=== PATIENT | female | born 1970 | race Caucasian/White ===

== ENCOUNTER 2016-12-12 11:20 | Inpatient (IN) | payer OTHER ==
[2016-12-12 12:19] VITALS: BMI 29.8
--- NOTE | 2016-12-12 13:48 | HP ---
Admission ROS [facility] Chief Complaint: requesting inpatient rehab from crack cocaine and cannabis Allergies/Adverse Reactions: Allergies Allergy/AdvReac Type Severity Reaction Status Date / Time No Known Allergies Allergy Verified 12/12/16 13:50 History of Present Illness: 46 yo f wih PMHx schizoaffective DO. DM, HLD, HTN on multiple medicatons with which she is complaint,no h/o suicide attempts in the past, no suicidal ideation at present [facility], cannabis and alcohol. no h/o seizures, dts, o IRAJ when she does nto drink, does not drink everyday, smoke marijuana and crack cocaine daily, last used 2 days ago Exam Limitations: No Limitations - Ebola screening Have you traveled outside of the country in the last 21 days: No Have you had contact with anyone from an Ebola affected area: No Have you been sick,other than usual withdrawal symptoms: No Do you have a fever: No - Review of Systems Constitutional: No Symptoms Reported EENT: reports: No Symptoms Reported Respiratory: reports: No Symptoms reported Cardiac: reports: No Symptoms Reported GI: reports: No Symptoms Reported : reports: No Symptoms Reported Musculoskeletal: reports: Joint Pain, Joint Swelling (work up showed fluid on elbow. responds to ibuprofen) Integumentary: reports: No Symptoms Reported Neuro: reports: No Symptoms reported Endocrine: reports: No Symptoms Reported Hematology: reports: No Symptoms Reported Psychiatric: reports: Judgement Intact, Mood/Affect Appropiate, Orientated x3, Agitated, Anxious, Depressed Other Systems: Reviewed and Negative Patient History - Patient Medical History Hx Anemia: No Hx Asthma: No Hx Chronic Obstructive Pulmonary Disease (COPD): No Hx Cancer: No Hx Cardiac Disorders: No Hx Congestive Heart Failure: No Hx Hypertension: Yes Hx Hypercholesterolemia: Yes Hx Pacemaker: No HX Cerebrovascular Accident: No Hx Seizures: No Hx Dementia: No Hx Diabetes: Yes Hx Gastrointestinal Disorders: No Hx Liver Disease: No Hx Genitourinary Disorders: No Hx Sexually Transmitted Disorders: No Hx Renal Disease (ESRD): No Hx Thyroid Disease: No Hx Human Immunodeficiency Virus (HIV): No Hx Hepatitis C: No Hx Depression: No Hx Suicide Attempt: No Hx Bipolar Disorder: No Hx Schizophrenia: No Other Medical History: schizoaffective do - Patient Surgical History Past Surgical History: No Hx Neurologic Surgery: No Hx Cataract Extraction: No Hx Cardiac Surgery: No Hx Lung Surgery: No Hx Breast Surgery: No Hx Breast Biopsy: No Hx Abdominal Surgery: No Hx Appendectomy: No Hx Cholecystectomy: No Hx Genitourinary Surgery: No Hx Section: No Hx Orthopedic Surgery: No Hx Hysterectomy: No Anesthesia Reaction: No - PPD History Previous Implant?: Yes Documented Results: Positive w/o proof Implanted On Prior [facility] Admission?: No PPD to be Administered?: No - Reproductive History Patient is a Female of Child Bearing Age (11 -55 yrs old): Yes Last Menstrual Period: 10/11/16 LMP comment: was absent x1 year prior Patient : No - Smoking Cessation Smoking history: Current every day smoker Have you smoked in the past 12 months: Yes Aproximately how many cigarettes per day: 6 Hx Chewing Tobacco Use: No Initiated information on smoking cessation: Yes 'Breaking Loose' booklet given: 12/12/16 - Substance & Tx. History Hx Alcohol Use: Yes (occasional use, no IRAJ) Hx Substance Use: Yes (daily cannabis and cocaine) Substance Use Type: Alcohol, Cocaine, Marijuana Hx Substance Use Treatment: Yes ([facility] inpatient 05/2016) - Substances Abused Crack Route: Smoking Frequency: Daily Amount used: as much money as she has Age of first use: 16 Date of Last Use: 12/10/16 Marijuana/Hashish Route: Smoking Frequency: Daily Amount used: $20/daily Age of first use: 13 Date of Last Use: 12/10/16 Alcohol Route: Oral Frequency: 1-2 times per week Amount used: beer, depending on how much money she has Age of first use: 14 Date of Last Use: 12/10/16 Family Disease History - Family Disease History Family Disease History: Diabetes: Mother, Other: Father (alzheimers, alcholism) Admission Physical Exam S - Vital Signs Vital Signs: Vital Signs - 24 hr 12/12/16 12:17 Temperature 97.9 F Pulse Rate 79 Respiratory 18 Rate Blood Pressure 135/87 - Physical General Appearance: Yes: Nourished, Appropriately Dressed, Mild Distress, Anxious, Other (overseight) HEENTM: Yes: Within Normal Limits, EOMI, Hearing grossly Normal, Normal ENT Inspection, Normocephalic, Normal Voice, AMANDA, Pharynx Normal Respiratory: Yes: Within Normal Limits, Chest Non-Tender, Lungs Clear, Normal Breath Sounds, No Respiratory Distress, No Accessory Muscle Use Neck: Yes: Within Normal Limits, No masses,lesions,Nodules, Supple, Trachea in good position Breast: Yes: Breast Exam Deferred Cardiology: Yes: Within Normal Limits, Regular Rhythm, Regular Rate, S1, S2 Abdominal: Yes: Normal Bowel Sounds, Non Tender, Soft, Protuberent Genitourinary: Yes: Within Normal Limits Back: Yes: Within Normal Limits, Normal Inspection Musculoskeletal: Yes: full range of Motion, Joint swelling (l elbow), Other ( bruised left elbow, pain on motion, normal ROM, no pint or bony tenderness) Extremities: Yes: Normal Capillary Refill, Normal Inspection, Normal Range of Motion, Non-Tender, Swelling (l elbow as above) Neurological: Yes: rotary adjuster II-XII NML intact, Fully Oriented, Alert, Motor Strength 5/5, Normal Response, Depressed Affect Integumentary: Yes: Within Normal Limits, Normal Color, Dry, Warm, Other (dry skin on feet) Lymphatic: Yes: Within Normal Limits - Diagnostic (1) Cocaine dependence Current Visit: Yes Status: Chronic Qualifiers: Substance use status: uncomplicated Qualified Code(s): F14.20 - Cocaine dependence, uncomplicated (2) Cannabis dependence Current Visit: Yes Status: Chronic (3) Alcohol abuse Current Visit: Yes Status: Chronic (4) Nicotine dependence Current Visit: Yes Status: Chronic Qualifiers: Nicotine product type: cigarettes Substance use status: uncomplicated Qualified Code(s): F17.210 - Nicotine dependence, cigarettes, uncomplicated (5) Schizoaffective disorder Current Visit: Yes Status: Chronic (6) Anxiety Current Visit: Yes Status: Chronic (7) Left elbow pain Current Visit: Yes Status: Acute (8) HTN (hypertension) Current Visit: Yes Status: Chronic Qualifiers: Hypertension type: essential hypertension Qualified Code(s): I10 - Essential (primary) hypertension (9) Diabetes mellitus Current Visit: Yes Status: Chronic Qualifiers: Diabetes mellitus type: type 2 Diabetes mellitus complication status: without complication Diabetes mellitus buttermaker helper insulin use: unspecified buttermaker helper insulin use status Qualified Code(s): E11.9 - Type 2 diabetes mellitus without complications (10) Hyperlipidemia Current Visit: Yes Status: Chronic Qualifiers: Hyperlipidemia type: unspecified Qualified Code(s): E78.5 - Hyperlipidemia, unspecified (11) Dry skin Current Visit: Yes Status: Chronic Cleared for Admission S - Detox or Rehab Claeared for Rehab Admission: Yes [facility] Breath Alcohol Content Breath Alcohol Content: 0 Urine Pregancy Test - Result Urine Test Results: Negative- NO Line Present Urine Drug Screen - Control Is Test Valid: Yes - Results Drug Screen Negative: No Urine Drug Screen Results: THC-Marijuana
[2016-12-12] MEDS ORDERED: MAGNESIUM HYDROX 2400MG/30ML ORAL SUSPENSION 30 ML CUP PO PRN (13:50)
[2016-12-12] MEDS ORDERED: guaiFENesin/D-METHORPHAN HB 10 ML UNIT-DOSE CUPS PO PRN (13:50)
[2016-12-12] MEDS ORDERED: LOPERAMIDE HCL 2 MG CAPSULE PO PRN (13:50)
[2016-12-12] MEDS ORDERED: P-EPHED 60MG/TRIPROLIDI 2.5MG TABLET PO PRN (13:50)
[2016-12-12] MEDS ORDERED: ACETAMINOPHEN 325 MG TABLET (FP) PO PRN (13:50)
[2016-12-12] MEDS ORDERED: MENTHOL/PHENOL 1 EACH UD MM PRN (13:50)
[2016-12-12] MEDS ORDERED: MAGNESIUM CITRATE 300 ML BOTTLE PO PRN (13:50)
[2016-12-12] MEDS ORDERED: NICOTINE 14 MG/24 HOURS TOPICAL PATCH TD PRN (13:53)
[2016-12-12] MEDS ORDERED: metFORMIN HCL 500 MG TABLET (FP) PO SCH (16:30)
[2016-12-12 17:03] LABS: MCH 28.1 pg (25.7-33.7); MCHC 32.6 g/dl (32.0-36.0); MEAN CELL VOLUME 86.2 fl (80-96); PLATELET COUNT 348 K/MM3 (134-434); RDW 14.1 % (11.6-15.6); WHITE BLOOD COUNT 10.2 K/mm3 (4.0-10.0)
[2016-12-12 17:16] LABS: ALBUMIN 3.3 g/dl (3.4-5.0); ALK PHOS 58 U/L (45-117); ANION GAP 12 (8-16); BILIRUBIN,TOTAL 0.2 mg/dL (0.2-1.0); CALCIUM 8.7 mg/dL (8.5-10.1); CO2 28 mmol/L (21-32); CREATININE 0.6 mg/dL (0.55-1.02); GLUCOSE,RANDOM 147 mg/dL (74-106); SGOT/AST 11 U/L (15-37); SGPT/ALT 17 U/L (12-78); TOT PROT 6.5 g/dl (6.4-8.2)
--- NOTE | 2016-12-12 18:59 | PN ---
S Progress Note Note: RECEIVED NURSE CALL PATIENT REPORTS THAT SHE IS TAKING LANTUS AT NIGHT BEGIN INSULIN SLIDING SCALE CONTINUE DETOX
[2016-12-12] MEDS: metFORMIN HCL 500 MG TABLET (FP) PO SCH (19:12)
[2016-12-12] MEDS: NICOTINE POLACRILEX 2 MG GUM BUC PRN (19:13)
[2016-12-12] MEDS ORDERED: traZODone HCL 150 MG TABLET PO SCH (22:00)
[2016-12-12] MEDS ORDERED: diphenhydrAMINE HCL 50 MG CAPSULE PO PRN (22:00)
[2016-12-12] MEDS: THIAMINE HCL 100 MG TABLET (FP) PO SCH (22:04)
[2016-12-12] MEDS: ATORVASTATIN CA 40 MG TABLET (FP) PO SCH (22:04)
[2016-12-12] MEDS: DIVALPROEX SODIUM 500 MG TABLET E.C. PO SCH (22:04)
[2016-12-12] MEDS: traZODone HCL 50 MG TABLET (FP) PO SCH (22:04)
[2016-12-12] MEDS: INSULIN SLIDING SCALE (NOVOLOG) 1 VIAL SQ SCH (22:21)
[2016-12-12] MEDS: PERPHENAZINE 8 MG TABLET PO SCH (22:24)
[2016-12-12 22:54] LABS: URINE APPEARANCE CLEAR; URINE BILIRUBIN NEGATIVE (NEGATIVE); URINE BLOOD NEGATIVE (NEGATIVE); URINE COLOR STRAW; URINE GLUCOSE (UA) NEGATIVE (NEGATIVE); URINE KETONE NEGATIVE (NEGATIVE); URINE NITRITE NEGATIVE (NEGATIVE); URINE PROTEIN NEGATIVE (NEGATIVE); URINE UROBILINOGEN NEGATIVE E.U./dl (0.2-1.0)
[2016-12-12 22:58] LABS: URINE LEUK ESTERASE 2+ (NEGATIVE)
[2016-12-12 23:01] LABS: URINE BACTERIA RARE /hpf (NONE SEEN); URINE RBC 1 /hpf (0-3); URINE WBC 20 /hpf (3-5)
[2016-12-13] MEDS: metFORMIN HCL 500 MG TABLET (FP) PO SCH ×2 (06:54→17:13)
[2016-12-13] MEDS: INSULIN SLIDING SCALE (NOVOLOG) 1 VIAL SQ SCH ×4 (06:55→21:55)
[2016-12-13] MEDS: FLUoxetine HCL 10 MG CAPSULE (FP) PO SCH (10:34)
[2016-12-13] MEDS: ASPIRIN COATED 81 MG TABLET.EC PO SCH (10:34)
[2016-12-13] MEDS: PRENATAL VITAMINS W/ FOLIC ACID TABLET (FP) PO SCH (10:34)
[2016-12-13] MEDS: NICOTINE POLACRILEX 2 MG GUM BUC PRN ×2 (10:36→17:15)
[2016-12-13] MEDS: ENALAPRIL MALEATE 2.5 MG TABLET (FP) PO SCH (11:54)
[2016-12-13] MEDS ORDERED: INFLUENZA VACCINE 45 MCG/0.5 ML (MDV 16-17) IM ONE (12:00)
[2016-12-13] MEDS ORDERED: PNEUMOC 13-VAL CONJ-DIP CRM/PF 0.5 ML DISP.SYRIN IM ONE (12:00)
[2016-12-13 14:32] LABS: HIV 1 & 2 AB NEGATIVE; HIV 1 AGp24 NEGATIVE
[2016-12-13] MEDS ORDERED: INSULIN (NOVOLOG) ASPART 100 UNITS/ML 10ML VIAL ONE (16:52)
--- NOTE | 2016-12-13 18:29 | EKG ---
Test Reason : Blood Pressure : / mmHG Vent. Rate : 072 BPM Atrial Rate : 072 BPM P-R Int : 166 ms QRS Dur : 088 ms QT Int : 406 ms P-R-T Axes : 015 054 034 degrees QTc Int : 444 ms NORMAL SINUS RHYTHM CANNOT RULE OUT ANTERIOR INFARCT , AGE UNDETERMINED ABNORMAL ECG NO PREVIOUS ECGS AVAILABLE Confirmed by CLARE MAURICIO MD ([id number]) on 12/13/2016 6:29:03 PM Referred By: Daniel Ni Confirmed By:CLARE MAURICIO MD
[2016-12-13] MEDS: traZODone HCL 50 MG TABLET (FP) PO SCH (21:53)
[2016-12-13] MEDS: THIAMINE HCL 100 MG TABLET (FP) PO SCH (21:53)
[2016-12-13] MEDS: DIVALPROEX SODIUM 500 MG TABLET E.C. PO SCH (21:53)
[2016-12-13] MEDS: ATORVASTATIN CA 40 MG TABLET (FP) PO SCH (21:53)
[2016-12-13] MEDS: PERPHENAZINE 8 MG TABLET PO SCH (21:56)
[2016-12-14] MEDS: metFORMIN HCL 500 MG TABLET (FP) PO SCH ×2 (06:51→17:25)
[2016-12-14] MEDS: NICOTINE POLACRILEX 2 MG GUM BUC PRN ×2 (06:51→11:54)
[2016-12-14] MEDS: INSULIN SLIDING SCALE (NOVOLOG) 1 VIAL SQ SCH ×4 (07:04→21:43)
[2016-12-14] MEDS: PRENATAL VITAMINS W/ FOLIC ACID TABLET (FP) PO SCH (10:18)
[2016-12-14] MEDS: AMMONIUM LACTATE 12% LOTION 225 GM BOTTLE TP PRN (10:18)
[2016-12-14] MEDS: FLUoxetine HCL 10 MG CAPSULE (FP) PO SCH (10:18)
[2016-12-14] MEDS: ASPIRIN COATED 81 MG TABLET.EC PO SCH (10:18)
[2016-12-14] MEDS: ENALAPRIL MALEATE 2.5 MG TABLET (FP) PO SCH (10:19)
[2016-12-14] MEDS ORDERED: INSULIN (NOVOLOG) ASPART 100 UNITS/ML 10ML VIAL ONE ×2 (16:51→23:24)
[2016-12-14] MEDS ORDERED: ATORVASTATIN CA 20 MG TABLET (FP) ONE (19:20)
[2016-12-14] MEDS ORDERED: PT OWN MED DRAWER 7, Y5N ONE (19:21)
[2016-12-14] MEDS: traZODone HCL 50 MG TABLET (FP) PO SCH (21:39)
[2016-12-14] MEDS: THIAMINE HCL 100 MG TABLET (FP) PO SCH (21:39)
[2016-12-14] MEDS: DIVALPROEX SODIUM 500 MG TABLET E.C. PO SCH (21:39)
[2016-12-14] MEDS: ATORVASTATIN CA 40 MG TABLET (FP) PO SCH (21:42)
[2016-12-14] MEDS: PERPHENAZINE 8 MG TABLET PO SCH (21:43)
[2016-12-15] MEDS: metFORMIN HCL 500 MG TABLET (FP) PO SCH ×2 (06:37→17:26)
[2016-12-15] MEDS: INSULIN SLIDING SCALE (NOVOLOG) 1 VIAL SQ SCH ×4 (06:37→21:44)
[2016-12-15] MEDS: NICOTINE POLACRILEX 2 MG GUM BUC PRN ×3 (06:38→17:27)
[2016-12-15] MEDS: ASPIRIN COATED 81 MG TABLET.EC PO SCH (10:35)
[2016-12-15] MEDS: PRENATAL VITAMINS W/ FOLIC ACID TABLET (FP) PO SCH (10:36)
[2016-12-15] MEDS: ENALAPRIL MALEATE 2.5 MG TABLET (FP) PO SCH (10:36)
[2016-12-15] MEDS: FLUoxetine HCL 10 MG CAPSULE (FP) PO SCH (10:36)
[2016-12-15] MEDS: IBUPROFEN 400 MG TABLET (FP) PO PRN (11:27)
--- NOTE | 2016-12-15 13:31 | HP ---
Psychiatrist Admission - Data Date of interview: 12/15/16 Admission source: [facility] Identifying data: Sabino is the first admission to [address] [place] [address] for this46 single H childless female,residing Supportive Housing , on SSI. Medical History: HTN,DM,Hyperlipidemia. Psychiatric History: First contact with psychiatrist was in her when she was admitted to [facility] due to first psychotic episode with auditory hallucinations,paranoid ideas.She was dx with Schizoaffective disorder,placed on Prozac,Perphenazine,Depakote.Patient reports 5 more psychiatric admissions.She is under care of psychiatrist at [facility].Medications:Trilafon 8 mg po hs,Depakote 500 mg po hs ,Prozac 30 mg po daily and Trazodone 150 mg po hs. Physical/Sexual Abuse/Trauma History: denies Vital Signs: Vital Signs - 24 hr 12/14/16 12/15/16 12/15/16 14:00 00:30 03:30 Temperature Pulse Rate 87 Respiratory 20 18 18 Rate Blood Pressure 126/80 12/15/16 12/15/16 12/15/16 07:13 09:55 12:11 Temperature 97.2 F L 98.1 F 98.1 F Pulse Rate 75 94 H 94 H Respiratory 18 18 18 Rate Blood Pressure 100/68 117/71 117/71 Allergies/Adverse Reactions: Allergies Allergy/AdvReac Type Severity Reaction Status Date / Time No Known Allergies Allergy Verified 12/12/16 13:50 Date of last physical exam: 12/12/16 Concur with the findings of this exam: Yes - Substance Abuse/Tx History Hx Alcohol Use: Yes (reports drinking since 13 yo) Hx Substance Use: Yes (since 17 yo,crack/cocaine since 17 yo) Substance Use Type: Alcohol, Cocaine, Marijuana Hx Substance Use Treatment: Yes (completed 28 extermination supervisor in May 2016) - Admission Criteria Previous failed treatment: Yes Poor recovery environment: Yes Comorbidities: Yes Lacks judgement: Yes Mental Status Exam - Mental Status Exam Alert and Oriented to: Time, Place, Person Cognitive Function: Grossly Intact Patient Appearance: Unkempt Mood: Depressed Affect: Mood Congruent, Labile Patient Behavior: Cooperative Speech Pattern: Clear Voice Loudness: Normal Thought Process: Goal Oriented Thought Disorder: Being Controlled Hallucinations: Denies Suicidal Ideation: Denies Homicidal Ideation: Denies Insight/Judgement: Fair Sleep: Fair Appetite: Fair Muscle strength/Tone: Normal Gait/Station: Normal Psychiatric Findings - Problem List ([place] 1, 2,3) (1) Alcohol abuse Current Visit: Yes (2) Cannabis dependence Current Visit: Yes Status: Chronic (3) Cocaine dependence Current Visit: Yes Status: Chronic Qualifiers: Substance use status: uncomplicated Qualified Code(s): F14.20 - Cocaine dependence, uncomplicated (4) Diabetes mellitus Current Visit: Yes Status: Chronic Qualifiers: Diabetes mellitus type: type 2 Diabetes mellitus complication status: without complication Diabetes mellitus extermination supervisor insulin use: unspecified residential insulin use status Qualified Code(s): E11.9 - Type 2 diabetes mellitus without complications (5) HTN (hypertension) Current Visit: Yes Status: Chronic Qualifiers: Hypertension type: essential hypertension Qualified Code(s): I10 - Essential (primary) hypertension (6) Schizoaffective disorder, depressive type Current Visit: Yes Status: Chronic - Initial Treatment Plan Initial Treatment Plan: Continue current medications as per plan. will monitor progress.
[2016-12-15] MEDS ORDERED: INSULIN (NOVOLOG) ASPART 100 UNITS/ML 10ML VIAL ONE (16:18)
[2016-12-15] MEDS ORDERED: PT OWN MED DRAWER 7, Y5N ONE (19:49)
[2016-12-15] MEDS: PERPHENAZINE 4 MG TABLET PO SCH (21:42)
[2016-12-15] MEDS: ATORVASTATIN CA 40 MG TABLET (FP) PO SCH (21:42)
[2016-12-15] MEDS: traZODone HCL 50 MG TABLET (FP) PO SCH (21:42)
[2016-12-15] MEDS: DIVALPROEX SODIUM 500 MG TABLET E.C. PO SCH (21:42)
[2016-12-15] MEDS: THIAMINE HCL 100 MG TABLET (FP) PO SCH (21:42)
[2016-12-16] MEDS: metFORMIN HCL 500 MG TABLET (FP) PO SCH ×2 (06:19→16:56)
[2016-12-16] MEDS: INSULIN SLIDING SCALE (NOVOLOG) 1 VIAL SQ SCH ×3 (06:20→16:57)
[2016-12-16] MEDS: NICOTINE POLACRILEX 2 MG GUM BUC PRN ×4 (06:20→16:56)
[2016-12-16] MEDS ORDERED: PT OWN MED DRAWER 7, Y5N ONE (08:56)
[2016-12-16] MEDS: PRENATAL VITAMINS W/ FOLIC ACID TABLET (FP) PO SCH (10:18)
[2016-12-16] MEDS: FLUoxetine HCL 10 MG CAPSULE (FP) PO SCH (10:18)
[2016-12-16] MEDS: ASPIRIN COATED 81 MG TABLET.EC PO SCH (10:18)
[2016-12-16] MEDS: ENALAPRIL MALEATE 2.5 MG TABLET (FP) PO SCH (10:18)
[2016-12-16] MEDS: MAG HYDROX/AL HYDROX/SIMETH 30 ML UNIT-DOSE CUP PO PRN (12:16)
[2016-12-16] MEDS: IBUPROFEN 400 MG TABLET (FP) PO PRN (14:35)
--- NOTE | 2016-12-16 20:00 | PN ---
[facility] Progress Note Note: STABLE BGM CHANGE INSULIN SLIDING SCALE FROM QID TO BID
[2016-12-16] MEDS: ATORVASTATIN CA 40 MG TABLET (FP) PO SCH (21:46)
[2016-12-16] MEDS: traZODone HCL 50 MG TABLET (FP) PO SCH (21:46)
[2016-12-16] MEDS: THIAMINE HCL 100 MG TABLET (FP) PO SCH (21:46)
[2016-12-16] MEDS: DIVALPROEX SODIUM 500 MG TABLET E.C. PO SCH (21:46)
[2016-12-16] MEDS: PERPHENAZINE 4 MG TABLET PO SCH (21:47)
[2016-12-17] MEDS: NICOTINE POLACRILEX 2 MG GUM BUC PRN ×4 (06:53→21:48)
[2016-12-17] MEDS: INSULIN SLIDING SCALE (NOVOLOG) 1 VIAL SQ SCH ×2 (06:53→16:25)
[2016-12-17] MEDS: metFORMIN HCL 500 MG TABLET (FP) PO SCH ×2 (06:53→16:23)
[2016-12-17] MEDS: PRENATAL VITAMINS W/ FOLIC ACID TABLET (FP) PO SCH (10:55)
[2016-12-17] MEDS: FLUoxetine HCL 10 MG CAPSULE (FP) PO SCH (10:55)
[2016-12-17] MEDS: ASPIRIN COATED 81 MG TABLET.EC PO SCH (10:55)
[2016-12-17] MEDS: ENALAPRIL MALEATE 2.5 MG TABLET (FP) PO SCH (10:57)
[2016-12-17] MEDS: MAG HYDROX/AL HYDROX/SIMETH 30 ML UNIT-DOSE CUP PO PRN (13:54)
[2016-12-17] MEDS ORDERED: INSULIN (NOVOLOG) ASPART 100 UNITS/ML 10ML VIAL ONE ×2 (16:20→23:24)
[2016-12-17] MEDS: DIVALPROEX SODIUM 500 MG TABLET E.C. PO SCH (21:46)
[2016-12-17] MEDS: THIAMINE HCL 100 MG TABLET (FP) PO SCH (21:46)
[2016-12-17] MEDS: traZODone HCL 50 MG TABLET (FP) PO SCH (21:46)
[2016-12-17] MEDS: ATORVASTATIN CA 40 MG TABLET (FP) PO SCH (21:46)
[2016-12-17] MEDS: PERPHENAZINE 4 MG TABLET PO SCH (21:47)
[2016-12-18] MEDS: metFORMIN HCL 500 MG TABLET (FP) PO SCH ×2 (06:50→16:55)
[2016-12-18] MEDS: INSULIN SLIDING SCALE (NOVOLOG) 1 VIAL SQ SCH ×2 (06:51→16:56)
[2016-12-18] MEDS: NICOTINE POLACRILEX 2 MG GUM BUC PRN ×3 (06:51→16:57)
[2016-12-18] MEDS: ASPIRIN COATED 81 MG TABLET.EC PO SCH (10:25)
[2016-12-18] MEDS: ENALAPRIL MALEATE 2.5 MG TABLET (FP) PO SCH (10:25)
[2016-12-18] MEDS: PRENATAL VITAMINS W/ FOLIC ACID TABLET (FP) PO SCH (10:25)
[2016-12-18] MEDS: FLUoxetine HCL 10 MG CAPSULE (FP) PO SCH (10:25)
[2016-12-18] MEDS: MAG HYDROX/AL HYDROX/SIMETH 30 ML UNIT-DOSE CUP PO PRN ×2 (13:09→21:54)
[2016-12-18] MEDS: traZODone HCL 50 MG TABLET (FP) PO SCH (21:51)
[2016-12-18] MEDS: DIVALPROEX SODIUM 500 MG TABLET E.C. PO SCH (21:51)
[2016-12-18] MEDS: THIAMINE HCL 100 MG TABLET (FP) PO SCH (21:53)
[2016-12-18] MEDS: ATORVASTATIN CA 40 MG TABLET (FP) PO SCH (21:53)
[2016-12-18] MEDS: PERPHENAZINE 4 MG TABLET PO SCH (21:53)
[2016-12-19] MEDS: metFORMIN HCL 500 MG TABLET (FP) PO SCH ×2 (07:05→17:26)
[2016-12-19] MEDS: INSULIN SLIDING SCALE (NOVOLOG) 1 VIAL SQ SCH ×2 (07:06→17:26)
[2016-12-19] MEDS: NICOTINE POLACRILEX 2 MG GUM BUC PRN ×3 (07:07→21:48)
[2016-12-19] MEDS: PRENATAL VITAMINS W/ FOLIC ACID TABLET (FP) PO SCH (10:36)
[2016-12-19] MEDS: ENALAPRIL MALEATE 2.5 MG TABLET (FP) PO SCH (10:37)
[2016-12-19] MEDS: FLUoxetine HCL 10 MG CAPSULE (FP) PO SCH (10:37)
[2016-12-19] MEDS: ASPIRIN COATED 81 MG TABLET.EC PO SCH (10:37)
[2016-12-19] MEDS ORDERED: INSULIN (NOVOLOG) ASPART 100 UNITS/ML 10ML VIAL ONE ×2 (16:52→21:55)
[2016-12-19] MEDS: MAG HYDROX/AL HYDROX/SIMETH 30 ML UNIT-DOSE CUP PO PRN (18:26)
[2016-12-19] MEDS: DIVALPROEX SODIUM 500 MG TABLET E.C. PO SCH (21:46)
[2016-12-19] MEDS: traZODone HCL 50 MG TABLET (FP) PO SCH (21:46)
[2016-12-19] MEDS: ATORVASTATIN CA 40 MG TABLET (FP) PO SCH (21:46)
[2016-12-19] MEDS: PERPHENAZINE 4 MG TABLET PO SCH (21:46)
[2016-12-19] MEDS: THIAMINE HCL 100 MG TABLET (FP) PO SCH (21:46)
[2016-12-20] MEDS: metFORMIN HCL 500 MG TABLET (FP) PO SCH ×2 (06:30→17:01)
[2016-12-20] MEDS: NICOTINE POLACRILEX 2 MG GUM BUC PRN ×4 (06:31→21:50)
[2016-12-20] MEDS: INSULIN SLIDING SCALE (NOVOLOG) 1 VIAL SQ SCH ×2 (06:31→17:02)
[2016-12-20] MEDS: FLUoxetine HCL 10 MG CAPSULE (FP) PO SCH (10:06)
[2016-12-20] MEDS: PRENATAL VITAMINS W/ FOLIC ACID TABLET (FP) PO SCH (10:07)
[2016-12-20] MEDS: ASPIRIN COATED 81 MG TABLET.EC PO SCH (10:07)
[2016-12-20] MEDS: ENALAPRIL MALEATE 2.5 MG TABLET (FP) PO SCH (10:07)
[2016-12-20] MEDS: PERPHENAZINE 4 MG TABLET PO SCH (21:50)
[2016-12-20] MEDS: THIAMINE HCL 100 MG TABLET (FP) PO SCH (21:50)
[2016-12-20] MEDS: DIVALPROEX SODIUM 500 MG TABLET E.C. PO SCH (21:50)
[2016-12-20] MEDS: ATORVASTATIN CA 40 MG TABLET (FP) PO SCH (21:50)
[2016-12-20] MEDS: traZODone HCL 50 MG TABLET (FP) PO SCH (21:51)
[2016-12-21] MEDS: NICOTINE POLACRILEX 2 MG GUM BUC PRN ×4 (06:41→21:26)
[2016-12-21] MEDS: metFORMIN HCL 500 MG TABLET (FP) PO SCH ×2 (06:41→16:36)
[2016-12-21] MEDS: INSULIN SLIDING SCALE (NOVOLOG) 1 VIAL SQ SCH ×2 (06:41→16:35)
[2016-12-21] MEDS: FLUoxetine HCL 10 MG CAPSULE (FP) PO SCH (10:15)
[2016-12-21] MEDS: PRENATAL VITAMINS W/ FOLIC ACID TABLET (FP) PO SCH (10:15)
[2016-12-21] MEDS: ASPIRIN COATED 81 MG TABLET.EC PO SCH (10:15)
[2016-12-21] MEDS: ENALAPRIL MALEATE 2.5 MG TABLET (FP) PO SCH (10:17)
[2016-12-21] MEDS: MAG HYDROX/AL HYDROX/SIMETH 30 ML UNIT-DOSE CUP PO PRN (16:35)
[2016-12-21] MEDS ORDERED: ATORVASTATIN CA 20 MG TABLET (FP) ONE (20:14)
[2016-12-21] MEDS: DIVALPROEX SODIUM 500 MG TABLET E.C. PO SCH (21:26)
[2016-12-21] MEDS: THIAMINE HCL 100 MG TABLET (FP) PO SCH (21:26)
[2016-12-21] MEDS: ATORVASTATIN CA 40 MG TABLET (FP) PO SCH (21:26)
[2016-12-21] MEDS: PERPHENAZINE 4 MG TABLET PO SCH (21:27)
[2016-12-21] MEDS: traZODone HCL 50 MG TABLET (FP) PO SCH (21:27)
[2016-12-22] MEDS: NICOTINE POLACRILEX 2 MG GUM BUC PRN ×3 (06:31→16:46)
[2016-12-22] MEDS: INSULIN SLIDING SCALE (NOVOLOG) 1 VIAL SQ SCH ×2 (06:31→17:20)
[2016-12-22] MEDS: metFORMIN HCL 500 MG TABLET (FP) PO SCH ×2 (06:31→16:45)
[2016-12-22] MEDS ORDERED: PT OWN MED DRAWER 7, Y5N ONE (10:15)
[2016-12-22] MEDS: ENALAPRIL MALEATE 2.5 MG TABLET (FP) PO SCH (10:35)
[2016-12-22] MEDS: PRENATAL VITAMINS W/ FOLIC ACID TABLET (FP) PO SCH (10:35)
[2016-12-22] MEDS: ASPIRIN COATED 81 MG TABLET.EC PO SCH (10:36)
[2016-12-22] MEDS: FLUoxetine HCL 10 MG CAPSULE (FP) PO SCH (10:36)
[2016-12-22] MEDS ORDERED: INSULIN (NOVOLOG) ASPART 100 UNITS/ML 10ML VIAL ONE ×2 (16:40→22:16)
[2016-12-22] MEDS: ATORVASTATIN CA 40 MG TABLET (FP) PO SCH (21:56)
[2016-12-22] MEDS: THIAMINE HCL 100 MG TABLET (FP) PO SCH (21:56)
[2016-12-22] MEDS: DIVALPROEX SODIUM 500 MG TABLET E.C. PO SCH (21:56)
[2016-12-22] MEDS: PERPHENAZINE 4 MG TABLET PO SCH (21:56)
[2016-12-22] MEDS: traZODone HCL 100 MG TABLET (FP) PO SCH (21:58)
[2016-12-23] MEDS: NICOTINE POLACRILEX 2 MG GUM BUC PRN ×4 (01:01→17:04)
[2016-12-23] MEDS: metFORMIN HCL 500 MG TABLET (FP) PO SCH ×2 (06:48→17:03)
[2016-12-23] MEDS: INSULIN SLIDING SCALE (NOVOLOG) 1 VIAL SQ SCH ×2 (06:49→17:04)
[2016-12-23] MEDS: ASPIRIN COATED 81 MG TABLET.EC PO SCH (10:32)
[2016-12-23] MEDS: FLUoxetine HCL 10 MG CAPSULE (FP) PO SCH (10:32)
[2016-12-23] MEDS: ENALAPRIL MALEATE 2.5 MG TABLET (FP) PO SCH (10:32)
[2016-12-23] MEDS: PRENATAL VITAMINS W/ FOLIC ACID TABLET (FP) PO SCH (10:32)
[2016-12-23] MEDS ORDERED: INSULIN (NOVOLOG) ASPART 100 UNITS/ML 10ML VIAL ONE ×2 (17:05→23:32)
[2016-12-23] MEDS: THIAMINE HCL 100 MG TABLET (FP) PO SCH (21:46)
[2016-12-23] MEDS: traZODone HCL 100 MG TABLET (FP) PO SCH (21:46)
[2016-12-23] MEDS: DIVALPROEX SODIUM 500 MG TABLET E.C. PO SCH (21:46)
[2016-12-23] MEDS: PERPHENAZINE 4 MG TABLET PO SCH (21:46)
[2016-12-23] MEDS: ATORVASTATIN CA 40 MG TABLET (FP) PO SCH (21:47)
[2016-12-24] MEDS: INSULIN SLIDING SCALE (NOVOLOG) 1 VIAL SQ SCH ×2 (06:27→17:06)
[2016-12-24] MEDS: NICOTINE POLACRILEX 2 MG GUM BUC PRN ×3 (06:27→16:05)
[2016-12-24] MEDS: metFORMIN HCL 500 MG TABLET (FP) PO SCH ×2 (06:27→17:05)
[2016-12-24] MEDS ORDERED: PT OWN MED DRAWER 7, Y5N ONE (08:48)
[2016-12-24] MEDS: AMMONIUM LACTATE 12% LOTION 225 GM BOTTLE TP PRN (10:17)
[2016-12-24] MEDS: PRENATAL VITAMINS W/ FOLIC ACID TABLET (FP) PO SCH (10:18)
[2016-12-24] MEDS: ENALAPRIL MALEATE 2.5 MG TABLET (FP) PO SCH (10:18)
[2016-12-24] MEDS: FLUoxetine HCL 10 MG CAPSULE (FP) PO SCH (10:18)
[2016-12-24] MEDS: ASPIRIN COATED 81 MG TABLET.EC PO SCH (10:18)
[2016-12-24] MEDS: PERPHENAZINE 4 MG TABLET PO SCH (21:40)
[2016-12-24] MEDS: THIAMINE HCL 100 MG TABLET (FP) PO SCH (21:40)
[2016-12-24] MEDS: DIVALPROEX SODIUM 500 MG TABLET E.C. PO SCH (21:40)
[2016-12-24] MEDS: traZODone HCL 100 MG TABLET (FP) PO SCH (21:40)
[2016-12-24] MEDS: ATORVASTATIN CA 40 MG TABLET (FP) PO SCH (21:40)
[2016-12-25] MEDS: metFORMIN HCL 500 MG TABLET (FP) PO SCH ×2 (06:32→17:07)
[2016-12-25] MEDS: INSULIN SLIDING SCALE (NOVOLOG) 1 VIAL SQ SCH ×2 (06:33→17:08)
[2016-12-25] MEDS: NICOTINE POLACRILEX 2 MG GUM BUC PRN ×4 (06:33→21:36)
[2016-12-25] MEDS: ENALAPRIL MALEATE 2.5 MG TABLET (FP) PO SCH (10:37)
[2016-12-25] MEDS: PRENATAL VITAMINS W/ FOLIC ACID TABLET (FP) PO SCH (10:37)
[2016-12-25] MEDS: FLUoxetine HCL 10 MG CAPSULE (FP) PO SCH (10:37)
[2016-12-25] MEDS: ASPIRIN COATED 81 MG TABLET.EC PO SCH (10:38)
[2016-12-25] MEDS: traZODone HCL 100 MG TABLET (FP) PO SCH (21:33)
[2016-12-25] MEDS: PERPHENAZINE 4 MG TABLET PO SCH (21:34)
[2016-12-25] MEDS: THIAMINE HCL 100 MG TABLET (FP) PO SCH (21:34)
[2016-12-25] MEDS: DIVALPROEX SODIUM 500 MG TABLET E.C. PO SCH (21:34)
[2016-12-25] MEDS: ATORVASTATIN CA 40 MG TABLET (FP) PO SCH (21:34)
[2016-12-26] MEDS: metFORMIN HCL 500 MG TABLET (FP) PO SCH (06:28)
[2016-12-26] MEDS: NICOTINE POLACRILEX 2 MG GUM BUC PRN ×2 (06:29→10:16)
[2016-12-26] MEDS: INSULIN SLIDING SCALE (NOVOLOG) 1 VIAL SQ SCH (06:29)
[2016-12-26 07:12] VITALS: BP 97/63; PULSE 67; TEMP 97.7
--- NOTE | 2016-12-26 09:04 | PN ---
[id number] 67-93 18-18 96-97/61-63 Date of Session: 12/26/16 Chief Complaint:: Discharge visit HPI: Patient addressed Alcohol,Cannabis and Cocaine dependence comorbid with Schizoaffective disorder. ROS: Significant for DM,HTN. Current Medications: Active Medications Generic Name Dose Route Start Last Admin Trade Name Freq PRN Reason Stop Dose Admin Acetaminophen 650 mg 12/12/16 13:50 12/17/16 16:23 Tylenol - PO 650 mg Q4H PRN Administration PAIN Al Hydroxide/Mg Hydroxide 30 ml 12/12/16 13:50 12/21/16 16:35 Mylanta Oral Suspension - PO 30 ml Q6H PRN Administration DYSPEPSIA Aspirin 81 mg 12/13/16 10:00 12/25/16 10:38 Ecotrin - PO 81 mg DAILY JULIÁN Administration Atorvastatin Calcium 40 mg 12/12/16 22:00 12/25/16 21:34 Lipitor - PO 40 mg HS JULIÁN Administration Diphenhydramine HCl 50 mg 12/12/16 22:00 Benadryl - PO HSMR1 PRN INSOMNIA Divalproex Sodium 500 mg 12/12/16 22:00 12/25/16 21:34 Depakote - PO 500 mg HS JULIÁN Administration Enalapril Maleate 2.5 mg 12/13/16 10:00 12/25/16 10:37 Vasotec - PO Not Given DAILY JULIÁN Eucalyptus/Menthol/Phenol/Sorbitol 1 each 12/12/16 13:50 Cepastat Lozenge - MM Q4H PRN SORE THROAT Fluoxetine HCl 30 mg 12/13/16 10:00 12/25/16 10:37 Prozac - PO 30 mg DAILY JULIÁN Administration Guaifenesin 10 ml 12/12/16 13:50 Robitussin Dm - PO Q6H PRN COUGH Ibuprofen 400 mg 12/12/16 13:50 12/16/16 14:35 Motrin - PO 400 mg Q6H PRN Administration SEVERE PAIN Insulin Aspart 1 vial 12/17/16 07:00 12/26/16 06:29 Novolog Vial Sliding Scale - SQ Not Given BIDAC [facility] Protocol Lactic Acid 1 applic 12/12/16 17:47 12/24/16 10:17 Lac-Hydrin 12 TP 1 applic DAILY PRN Administration DRY SKIN Loperamide HCl 4 mg 12/12/16 13:50 Imodium - PO Q6H PRN DIARRHEA Magnesium Citrate 300 ml 12/12/16 13:50 Citroma - PO Q48H PRN CONSTIPATION Magnesium Hydroxide 30 ml 12/12/16 13:50 12/24/16 19:55 Milk Of Magnesia - PO 30 ml DAILY PRN Administration CONSTIPATION Metformin HCl 1,000 mg 12/12/16 16:30 12/26/16 06:28 Glucophage - PO 1,000 mg BID@0700,1630 JULIÁN Administration Nicotine 14 mg 12/12/16 13:53 Nicoderm Patch - TD DAILY PRN ANXIETY Nicotine Polacrilex 2 mg 12/12/16 13:53 12/26/16 06:29 Nicorette Gum - BUC 2 mg Q2H PRN Administration NICOTINE REPLACEMENT RX Perphenazine 8 mg 12/15/16 22:00 12/25/16 21:34 Trilafon PO 8 mg HS JULIÁN Administration Multivit/Folic Acid/Iron 1 tab 12/13/16 10:00 12/25/16 10:37 Vitamins (Sjr) - PO 1 tab DAILY JULIÁN Administration Pseudoephedrine/Triprolidine 1 combo 12/12/16 13:50 Actifed - PO TID PRN NASAL CONGESTION Thiamine HCl 100 mg 12/12/16 22:00 12/25/16 21:34 Vitamin B1 - PO 100 mg HS JULIÁN Administration Trazodone HCl 200 mg 12/22/16 22:00 12/25/16 21:33 Desyrel - PO 200 mg HS JULIÁN Administration Current Side Effect: No Lab tests ordered: No Lab tests reviewed: Yes Provider note:: Patient completed this program today.She has met her treatment goals and will continue to address her issues on outpatient basis at [facility].Patient continues to find that Trilafon 8 mg po hs, Trazodone 150 mg pi hs,Prozac 30 mg po daily and Depakote 500 mg po hs help to reduce mood instability,depression,insomnia.Scripts for 30 days proivided. Therpay provided focusing on relapse prevention including coping skills,support utiliation to maintain recovery. Patient is stable for discharge today. Total face to face time:: 30 Mental Status Exam - Mental Status Exam Alert and Oriented to: Time, Place, Person Cognitive Function: Grossly Intact Patient Appearance: Well Groomed Mood: Euthymic Affect: Mood Congruent Patient Behavior: Cooperative Speech Pattern: Clear, Artificially Ventilated Thought Process: Goal Oriented Thought Disorder: Being Controlled Hallucinations: Denies Suicidal Ideation: Denies Homicidal Ideation: Denies Insight/Judgement: Fair Sleep: Fair Appetite: Fair Muscle strength/Tone: Normal Gait/Station: Normal Psychiatric Treatment Plan - Problem List (3) Cocaine dependence Qualifiers: Substance use status: uncomplicated Qualified Code(s): F14.20 - Cocaine dependence, uncomplicated (4) Diabetes mellitus Qualifiers: Diabetes mellitus type: type 2 Diabetes mellitus complication status: without complication Diabetes mellitus card tape converter operator insulin use: unspecified card tape converter operator insulin use status Qualified Code(s): E11.9 - Type 2 diabetes mellitus without complications (5) HTN (hypertension) Qualifiers: Hypertension type: essential hypertension Qualified Code(s): I10 - Essential (primary) hypertension
[2016-12-26] MEDS: PRENATAL VITAMINS W/ FOLIC ACID TABLET (FP) PO SCH (10:15)
[2016-12-26] MEDS: FLUoxetine HCL 10 MG CAPSULE (FP) PO SCH (10:16)
[2016-12-26] MEDS: ASPIRIN COATED 81 MG TABLET.EC PO SCH (10:16)
[2016-12-26] MEDS: ENALAPRIL MALEATE 2.5 MG TABLET (FP) PO SCH (10:16)
== END 2016-12-26 10:30 | disposition home or self-care (01) | DRG 772 ==
LOC: YASAS 11:20 → Y3E 17:43
PROVIDERS: ADMIT Psychiatry & Neurology Psychiatry; ATTEND Psychiatry & Neurology Psychiatry
PROC: HZ42ZZZ Group Counseling for Substance Abuse Treatment, Cognitive-Behavioral (ICD-10-PCS; principal; 2016-12-26)
DX: F14.20 Cocaine dependence, uncomplicated (principal); F12.20 Cannabis dependence, uncomplicated; F17.210 Nicotine dependence, cigarettes, uncomplicated; F10.10 Alcohol abuse, uncomplicated; F25.9 Schizoaffective disorder, unspecified; I10 Essential (primary) hypertension; E11.9 Type 2 diabetes mellitus without complications; Z79.4 Long term (current) use of insulin; E78.5 Hyperlipidemia, unspecified; M25.522 Pain in left elbow; L85.3 Xerosis cutis
CPT/HCPCS: 36415; 71020-TC; 80053; 81003; 81015; 85027; 86593; 87389; 90670; 93005; 93010